=== PATIENT | male | born 1940 | race African-American/Black ===

== ENCOUNTER 2017-07-18 00:22 | Observation (INO) | payer OTHER ==
[~2017-07-18] VITALS: Ht 167.6 cm; Wt 72.4 kg
[2017-07-18 01:01] LABS: HEMATOCRIT 41.4 % (38.0-50.0); HEMOGLOBIN 13.9 G/DL (12.5-16.6); MCH 30.8 PG (29.0-34.0); MCHC 33.6 G/DL (30.0-36.0); MCV 91.8 FL (86-99); PLATELET COUNT 187 K/uL (156-360); RBC DIS.WIDTH-CV 13.2 % (11.8-14.6); RBC DIS.WIDTH-SD 45.1 % (39-53); RED BLOOD COUNT 4.51 M/uL (4.00-5.50); WHITE BLOOD COUNT 8.8 K/uL (4.1-10.2)
[2017-07-18 01:06] LABS: INTER. NORMALIZED RATIO 1.1
[2017-07-18 01:24] LABS: CHLORIDE 108 MEQ/L (99-109); CREATININE 1.2 MG/DL (0.6-1.3); GFR ESTIMATE (CALCULATED) > 59 mL/min/ (58.99-99999); GLUCOSE 94 mg/dL (70-99); POTASSIUM 3.8 MEQ/L (3.7-5.4); SODIUM 141 MEQ/L (136-147); UREA NITROGEN (BUN) 13 mg/dL (9-23)
[2017-07-18 01:31] LABS: TROP-I INTERPRETATION NEGATIVE; TROPONIN-I 0.02 ng/mL (0.0-0.30)
[2017-07-18 04:08] VITALS: BP 121/60
[2017-07-18 07:16] VITALS: BP 130/74
[2017-07-18 09:02] LABS: TROP-I INTERPRETATION NEGATIVE; TROPONIN-I 0.02 ng/mL (0.0-0.30)
[2017-07-18 09:06] LABS: HDL CHOLESTEROL 34 MG/DL (Desirable>=40); LDL CHOLESTEROL 121 mg/dL (Desirable<100); NON-HDL CHOLESTEROL 144 mg/dL (Desirable<160); TOTAL CHOLESTEROL 178 mg/dL (Desirable<200); TRIGLYCERIDES 117 MG/DL (Normal: <150)
[2017-07-18] MEDS ORDERED: NITROSTAT0.4 MG SL (10:42)
[2017-07-18] MEDS ORDERED: ASPIRIN81 M2 PO (10:42)
[2017-07-18] MEDS ORDERED: ATORVASTATIN CA40 MG PO (10:42)
[2017-07-18] MEDS ORDERED: FAMOTIDINE20 MG PO (10:42)
[2017-07-18] MEDS ORDERED: MAALOX ADVANCE355 ML PO (10:42)
[2017-07-18] MEDS ORDERED: NICODERM CQ1 EAC2 TD (10:42)
[2017-07-18 11:26] VITALS: BP 131/66
[2017-07-18 14:54] LABS: TROP-I INTERPRETATION NEGATIVE; TROPONIN-I < 0.01 ng/mL (0.0-0.30)
[2017-07-19 10:26] LABS: HEMOGLOBIN A1c (GLYCOHEMOGLOB) 5.5 % (Below 5.7)
== END 2017-07-18 15:15 | disposition home or self-care (01) ==
LOC: EDBD 00:22 → EME 00:22 → EDOF 02:53 → ENRESERV 03:00 → 4SOUTH 04:03 → ENPENDDIS 12:19 → 4SOUTH 15:15
PROVIDERS: Emergency Medicine; Physician Assistant Medical
DX: R07.2 Precordial pain (principal); F17.210 Nicotine dependence, cigarettes, uncomplicated; I25.10 Atherosclerotic heart disease of native coronary artery without angina pectoris; Z95.5 Presence of coronary angioplasty implant and graft; I10 Essential (primary) hypertension; E78.5 Hyperlipidemia, unspecified; K21.9 Gastro-esophageal reflux disease without esophagitis; K44.9 Diaphragmatic hernia without obstruction or gangrene; F17.200 Nicotine dependence, unspecified, uncomplicated; F03.90 Unspecified dementia, unspecified severity, without behavioral disturbance, psychotic disturbance, mood disturbance, and anxiety; J32.9 Chronic sinusitis, unspecified; R94.31 Abnormal electrocardiogram [ECG] [EKG]
CPT/HCPCS: 71275; 80048; 80061; 83036; 84484; 85027; 85610; 93005; G0378; J1644